=== PATIENT | male | born 1960 | race Caucasian/White ===

== ENCOUNTER 2023-03-29 10:07 | Emergency (ER) | payer MEDICARE, SELFPAY ==
[2023-03-29 10:12] VITALS: BP 151/83; PULSE 84; RESP 20; TEMP 36.8; O2SAT 94; BMI 34.5
--- NOTE | 2023-03-29 11:29 | ED.GENADULT ---
HPI - General Adult General Chief complaint: Ear Problems Stated complaint: blood drainage l ear facial swelling Time Seen by Provider: 03/29/23 10:34 Source: patient, RN notes reviewed and old records reviewed Mode of arrival: ambulatory Limitations: no limitations History of Present Illness HPI narrative: Patient reports that Sunday he had pain in his left ear and reported to have small amount of blood. Patient denies hearing loss. No cold symptoms. Patient denies using Q-tips or anything else to clean his ears. Patient also reports left sided mouth pain mild swelling. Patient states that he has not seen a dentist for a while. Patient is not diabetic. Patient denies sore throat, dysphagia or dyspepsia. Denies any respiratory symptoms. Onset (ago): day(s) Related Data Previous Rx's Medication Instructions Recorded amoxicillin 500 mg capsule 500 mg PO BID 7 days #14 caps 03/29/23 Allergies Allergy/AdvReac Type Severity Reaction Status Date / Time duloxetine [From Cymbalta] Allergy Dizziness Verified 03/29/23 10:12 NSAIDS (Non-Steroidal AdvReac Gastrointestinal Verified 03/29/23 10:12 Anti-Inflamma Upset [facility] Social History Social History Advance Directives: No Physical Exam ED Vital Signs: Vital Signs - 24 hr 03/29/23 10:12 Temperature 98.2 F Pulse Rate 84 Respiratory Rate 20 Blood Pressure 151/83 H Pulse Oximetry 94 Oxygen Delivery Method Room Air BMI result Body Mass Index 34.5 Const General: cooperative and no acute distress Nutritional Appearance: average body habitus HENMO Head: Yes normal to inspection, Yes No palpable skull fracture present, Yes normocephalic and Yes atraumatic Ears: TM normal on the right, TM normal on the left and other (Left outer ear dried blood without redness, inflammation.) Face and sinus: Yes normal facial exam Teeth and gingiva: abnormal tooth and associated gingiva and poor dentition Resp Effort & Inspection: normal respiratory effort and able to speak in complete sentences Cardio Rate: regular rate Skin General skin exam: no rashes or lesions noted, elasticity normal and turgor normal Medications Administered Discontinued Medications Generic Name Dose Route Start Last Admin Trade Name Freq PRN Reason Stop Dose Admin Amoxicillin 500 mg 03/29/23 11:29 03/29/23 11:51 Amoxicillin 500 Mg Capsule PO 03/29/23 11:30 500 mg ONCE ONE Administration Medical Decision Making Medical Decision Making [facility] Narrative: Patient reports that Sunday he had pain in his left ear and reported to have small amount of blood. Patient denies hearing loss. No cold symptoms. Patient denies using Q-tips or anything else to clean his ears. Patient also reports left sided mouth pain mild swelling. Patient states that he has not seen a dentist for a while. Patient is not diabetic. Patient denies sore throat, dysphagia or dyspepsia. Denies any respiratory symptoms. Normal TM, small amount of blood noted in the ear canal that it is dry. No inflammation. Patient also has poor dentition mild swelling without abscess. Patient will be sent home with amoxicillin and follow-up with his dentist. Differential Diagnosis Differential Diagnoses: The differential diagnosis associated with the presentation includes Gingivitis, abscess, ear infection Discharge Plan Discharge Clinical Impression: Otitis externa, Gingivitis Patient Disposition: Home, Self-Care Instructions: Gingivitis (ED), Earache (ED) Additional Instructions: you were seen here today for ear pain and mouth pain. You will be giving script for antibiotic to prevent any further infection. Your left ear has no infection. Please follow-up with your primary care provider as well as the dentist. make sure that to drink plenty fluids. you may return to emergency department your symptoms will get worse or if you experience any additional concerning symptoms. Please finish all of you antibiotics even if your symptoms will improve Prescriptions: New amoxicillin 500 mg capsule 500 mg PO BID 7 Days Qty: 14 0RF Interventions: ED Discharge Assessment Last Done: 03/29/23 12:02 Discharge Date/Time: 03/29/23 12:03
[2023-03-29] MEDS: Amoxicillin 500 MG CAPSULE PO (11:51)
== END 2023-03-29 12:03 | disposition home or self-care (01) ==
PROVIDERS: Emergency Provider Student in an Organized Health Care Education/Training Program; PCP Internal Medicine
DX: H60.92 Unspecified otitis externa, left ear (principal); H92.02 Otalgia, left ear; K05.10 Chronic gingivitis, plaque induced
CPT/HCPCS: 99283

== ENCOUNTER 2025-03-08 15:00 | Emergency (ER) | payer MEDICARE, MEDICAID, SELFPAY ==
[2025-03-08] VITALS (13 sets, daily range): BP systolic 99–125; BP diastolic 70–91; PULSE 67–119; RESP 13–40; TEMP 37–39.4; O2SAT 95–100; BMI 41.0
--- NOTE | ~2025-03-08 | XR_ITS ---
CLINICAL HISTORY: sob 1 view chest x-ray Comparison: None Findings: Low lung volumes. No consolidation, large effusion or pneumothorax. Cardiomegaly. Spinal stimulator electrodes project over the lower thoracic spine. IMPRESSION: Low lung volumes.No acute cardiopulmonary findings. This document has been electronically signed by: Issac Candelario MD on 03/08/2025 17:48:18
--- NOTE | 2025-03-08 15:23 | ECG_ITS ---
Test Reason : WEAK Blood Pressure : */* mmHG Vent. Rate : 110 BPM Atrial Rate : * BPM P-R Int : * ms QRS Dur : 92 ms QT Int : 336 ms P-R-T Axes : * 7 14 degrees QTcB Int : 454 ms Atrial fibrillation with rapid ventricular response Possible Inferior infarct , age undetermined Abnormal ECG No previous ECGs available Referred By: Dora Forman Electronically Signed By: Uvaldo Jain
--- NOTE | 2025-03-08 15:28 | ED.GENADULT ---
HPI - General Adult General Chief complaint: General Medical Stated complaint: BODY ACHES COUGHING Time Seen by Provider: 03/08/25 15:17 Source: patient and EMS Mode of arrival: EMS Limitations: no limitations History of Present Illness ED Provider: Dora Forman NP HPI narrative: Patient is a 64-year-old male who presents emergency department via EMS coming from [facility]. He reports that he has been there for approximately 1 week. He states that he began experiencing flu-like symptoms yesterday evening endorsing nausea, intermittent double vision, dizziness, productive cough with green phlegm. Admits to a history of COPD with chronic supplemental oxygen usage. He does admit that he recently got a roommate at the facility who has been ill with upper respiratory symptoms and a productive cough. He admits that when he was recently at [facility] prior to going to [facility] he had withdrawn from alcohol there, does not believe he has had an alcoholic drink in approximately 1 week. Reports that his head feels ?scrambled? is answering questions appropriately Related Data Previous Rx's ?Medication ?Instructions ?Recorded amoxicillin 500 mg capsule 500 mg PO BID 7 days #14 caps 03/29/23 Allergies Allergy/AdvReac Type Severity Reaction Status Date / Time duloxetine [From Cymbalta] Allergy Dizziness Verified 03/08/25 15:19 NSAIDS (Non-Steroidal AdvReac Gastrointestinal Verified 03/08/25 15:19 Anti-Inflamma Upset Review of Systems Review of Systems: Yes all other systems are reviewed and are negative PMFSH Past Medical History Attestation statement: The following information was validated with the patient. Source: old records reviewed Social History Social History Advance Directives: No Advance Directives Information Provided: No Physical Exam ED Vital Signs: Vital Signs - 24 hr 03/08/25 15:15 03/08/25 15:23 03/08/25 16:17 Temperature 98.6 F 103.0 F H 101.7 F H Pulse Rate 97 109 H 105 H Respiratory Rate 16 20 Blood Pressure 125/77 115/87 Pulse Oximetry 97 98 Oxygen Delivery Method Nasal Cannula Nasal Cannula Oxygen Flow Rate 2 03/08/25 16:31 03/08/25 16:55 03/08/25 17:11 Temperature 101.1 F H 101.1 F H 100.8 F H Pulse Rate 67 89 104 H Respiratory Rate 23 H 29 H 30 H Blood Pressure 112/78 106/83 112/74 Pulse Oximetry 99 99 99 Oxygen Delivery Method Nasal Cannula Nasal Cannula Nasal Cannula Oxygen Flow Rate 2 2 2 03/08/25 17:31 03/08/25 17:46 03/08/25 18:04 Temperature 100.4 F 100.2 F Pulse Rate 104 H 95 96 Respiratory Rate 25 H 40 H 13 Blood Pressure 118/75 113/78 Pulse Oximetry 99 98 Oxygen Delivery Method Nasal Cannula Nasal Cannula Oxygen Flow Rate 2 03/08/25 19:00 Temperature 100.0 F Pulse Rate Respiratory Rate 20 Blood Pressure Pulse Oximetry Oxygen Delivery Method Oxygen Flow Rate BMI result Body Mass Index 41.0 Appearance: Alert.?Oriented to person, place and time. No acute distress.?Normal affect. Eyes: Pupils equal, round and reactive to light.? ENT: Pharynx normal.?? Neck: Normal inspection.? Neck supple.?? CVS: Heart sounds normal. Tachycardia Pulses normal.?? Respiratory: No respiratory distress.? Lung sounds with expiratory wheezing, coarse of the bilateral bases Abdomen: Soft and non-tender. Normoactive bowel sounds. ? Skin: Skin appears a bit pale Skin is hot to touch of the core, slightly clammy at the extremities. He is febrile?? Extremities: No lower extremity edema.? Neuro: Moves all extremities spontaneously. Sensation intact bilaterally. No focal neuro deficits. Course Reevaluation(s) Reevaluation #1: Patient is noted to be COVID-19 positive today, chest x-ray without consolidation infiltrate to suggest pneumonia, he has no increased oxygen requirement, he is tachycardic which is to be expected, patient received Solu-Medrol and will trial albuterol given his history of COPD feel that this would be of benefit for him. EKG reveals atrial fibrillation with RVR, ventricular rate of 110, QTC 454, no ST-elevation. pulse has been 100-110 in the emergency department. After his pulse closely, if any higher he may require intervention though none warranted at this time. CBC is without leukocytosis anemia or thrombocytopenia. No electrolyte derangement. No JEREL. No lactic acidosis. LFTs overall unremarkable. High sensitive troponin within normal range. BNP at 118, clinically does not appear volume overloaded. He was pending urinalysis at this time, visit vitals remain otherwise stable anticipate that he will be transferred [facility] to [facility] facility Patient signed out to [facility] pending urinalysis, unless otherwise acute changes anticipate discharge Medications Administered Discontinued Medications Generic Name Dose Route Start Last Admin Trade Name Gretchen PRN Reason Stop Dose Admin Acetaminophen 975 mg 03/08/25 15:28 03/08/25 15:59 Acetaminophen 325 Mg Tablet PO 03/08/25 15:29 975 mg ONCE ONE Administration Albuterol Sulfate 5 mg 03/08/25 17:58 03/08/25 18:04 Albuterol Sulfate (0.083%) 2.5 Mg/3 Ml Vial.Neb INHALE 03/08/25 17:59 5 mg ONCE ONE Administration Ceftriaxone Sodium 1 gm 03/08/25 15:22 03/08/25 16:10 Ceftriaxone Sodium 1 Gm Vial IVPUSH 03/08/25 15:23 1 gm ONCE ONE Administration Sodium Chloride 500 mls @ 999 mls/hr 03/08/25 15:45 03/08/25 17:11 Ns IV 03/08/25 16:15 Infused .Q31M RADHA Infusion Methylprednisolone Sodium Succinate 60 mg 03/08/25 17:48 03/08/25 18:30 Methylprednisolone Sod Succ 125 Mg/2 Ml Vial IVPUSH 03/08/25 17:49 60 mg ONCE ONE Administration Medical Decision Making Medical Decision Making MDM Narrative: Patient is a 64-year-old male with past medical history of COPD with chronic hypoxic respiratory failure on 2 L of supplemental oxygen at baseline, heart failure preserved EF most recent echocardiogram September of 2024 revealing normal EF, atrial fibrillation not on anticoagulation secondary to prior GI bleed, IVÁN not on CPAP, left cavernous ICA aneurysm with recent advisement for outpatient neurointerventional follow-up, alcohol use disorder presenting from [facility] for evaluation of flu-like symptoms as per HPI. On review of medical records from [facility] he was admitted -02/27/25 initially brought in for hypotension, alcohol withdrawal, AFib with RVR, and JEREL resolved after IV fluids. Today he arrives tachycardic, febrile, clammy of the extremities and hot to the core, sepsis alert was called. Given his history of heart failure, start with only 500 mL of normal saline at this time pending serum labs as well as lactic acid, he is not currently hypotensive. He feels a bit foggy but he is able to answer all questions appropriately and he is otherwise mentating accordingly. Differential Diagnosis Differential Diagnoses: The differential diagnosis associated with the presentation includes (Viral upper respiratory infection, pneumonia, COPD exacerbation, heart failure exacerbation) Admission/Observation Consideration of admission/observation: Escalation of care including admission/observation considered Lab Data MDM Lab Attestation statement: I reviewed the patient's lab results. 03/08/25 15:52 03/08/25 15:52 Labs: Lab Results 03/08/25 03/08/25 03/08/25 Range/Units 15:52 16:09 16:38 WBC 7.2 (4.8-10.8) X10*3/uL RBC 5.10 (4.60-5.80) X10*6/uL Hgb 14.6 (14.0-18.0) g/dl Hct 46.7 (42.0-52.0) % MCV 91.6 (80.0-98.0) fL MCH 28.6 (27.0-33.0) pg MCHC 31.3 (31.0-36.0) g/dl RDW 15.5 (11.0-16.0) % Plt Count 236 (160-400) X10*3/uL MPV 10.2 (9.4-12.4) fL Immature Gran % (Auto) 0.7 H (0.0-0.4) % Neut % (Auto) 72.4 (45-73) % Lymph % (Auto) 11.1 L (20-40) % Hartley % (Auto) 14.2 H (2-11) % Eos % (Auto) 0.8 (0-4) % Baso % (Auto) 0.8 (0-2) % Lymph # (Auto) 0.8 L (1.2-4.9) X10*3/uL Hartley # (Auto) 1.0 (0.1-1.2) X10*3/uL Eos # (Auto) 0.1 (0.0-0.4) X10*3/uL Baso # (Auto) 0.1 (0.0-0.2) X10*3/uL Abs Immat Gran (auto) 0.05 H (0.00-0.03) X10*3/uL Absolute Neuts (auto) 5.2 (2.0-8.3) x10*3/uL Absolute Nucleated RBC 0.000 (0.0-0.012) X10*3/uL Nucleated RBC % (auto) 0.0 (0.0-0.2) /100WBC PT 13.6 H (10.9-12.4) SEC INR 1.2 H (0.9-1.1) Sodium 141 (135-145) mmol/L Potassium 4.0 (3.3-5.1) mmol/L Chloride 98 (96-108) mmol/L Carbon Dioxide 27 (22-29) mmol/L Anion Gap 20 (12-20) BUN 14 (9-16) mg/dL Creatinine 0.88 (0.5-1.4) mg/dL Estim Creat Clear Calc 95.3 Estimated GFR > 60 Random Glucose 108 (60-115) mg/dL Lactic Acid 1.0 (0.5-2.0) mmol/L Calcium 9.0 (8.4-10.2) mg/dL Magnesium 2.0 (1.6-2.6) mg/dL Total Bilirubin 0.2 (0.0-1.0) mg/dL AST 40 H (5-37) U/L ALT 22 (0-40) U/L Alkaline Phosphatase 84 (39-117) U/L Troponin I High Sens 10.3 (<3.5-35.0) ng/L B-Natriuretic Peptide 118 H (<100) pg/mL Total Protein 7.1 (6.5-8.0) g/dL Albumin 3.7 (3.5-5.0) g/dL Urine Color Urine Appearance Urine pH (5.0-9.0) Ur Specific [place] (1.005-1.025) Urine Protein (Neg-Trace) mg/dL Urine Glucose (UA) (Negative) mg/dL Urine Ketones (Negative) mg/dL Urine Blood (Negative) Urine Nitrite (Negative) Ur Leukocyte Esterase (Negative) Urine RBC (0-2) /HPF Urine WBC (0-5) /HPF Ur Squamous Epith Cells (0-2) /HPF Urine Bacteria (None Seen) Hyaline Casts (0-2) /LPF Influenza Type A (PCR) NEGATIVE (Negative) Influenza Type B (PCR) NEGATIVE (Negative) RSV RNA Qual (PCR) NEGATIVE (Negative) SARS-CoV-2 RNA (RT-PCR) POSITIVE A (Negative) 03/08/25 Range/Units 18:57 WBC (4.8-10.8) X10*3/uL RBC (4.60-5.80) X10*6/uL Hgb (14.0-18.0) g/dl Hct (42.0-52.0) % MCV (80.0-98.0) fL MCH (27.0-33.0) pg MCHC (31.0-36.0) g/dl RDW (11.0-16.0) % Plt Count (160-400) X10*3/uL MPV (9.4-12.4) fL Immature Gran % (Auto) (0.0-0.4) % Neut % (Auto) (45-73) % Lymph % (Auto) (20-40) % Hartley % (Auto) (2-11) % Eos % (Auto) (0-4) % Baso % (Auto) (0-2) % Lymph # (Auto) (1.2-4.9) X10*3/uL Hartley # (Auto) (0.1-1.2) X10*3/uL Eos # (Auto) (0.0-0.4) X10*3/uL Baso # (Auto) (0.0-0.2) X10*3/uL Abs Immat Gran (auto) (0.00-0.03) X10*3/uL Absolute Neuts (auto) (2.0-8.3) x10*3/uL Absolute Nucleated RBC (0.0-0.012) X10*3/uL Nucleated RBC % (auto) (0.0-0.2) /100WBC PT (10.9-12.4) SEC INR (0.9-1.1) Sodium (135-145) mmol/L Potassium (3.3-5.1) mmol/L Chloride (96-108) mmol/L Carbon Dioxide (22-29) mmol/L Anion Gap (12-20) BUN (9-16) mg/dL Creatinine (0.5-1.4) mg/dL Estim Creat Clear Calc Estimated GFR Random Glucose (60-115) mg/dL Lactic Acid (0.5-2.0) mmol/L Calcium (8.4-10.2) mg/dL Magnesium (1.6-2.6) mg/dL Total Bilirubin (0.0-1.0) mg/dL AST (5-37) U/L ALT (0-40) U/L Alkaline Phosphatase (39-117) U/L Troponin I High Sens (<3.5-35.0) ng/L B-Natriuretic Peptide (<100) pg/mL Total Protein (6.5-8.0) g/dL Albumin (3.5-5.0) g/dL Urine Color Dark Yellow Urine Appearance Clear Urine pH 5.5 (5.0-9.0) Ur Specific [place] 1.020 (1.005-1.025) Urine Protein Trace (Neg-Trace) mg/dL Urine Glucose (UA) Negative (Negative) mg/dL Urine Ketones Negative (Negative) mg/dL Urine Blood Negative (Negative) Urine Nitrite Negative (Negative) Ur Leukocyte Esterase Small (1+) H (Negative) Urine RBC 0-2 (0-2) /HPF Urine WBC 6-10 H (0-5) /HPF Ur Squamous Epith Cells 0-2 (0-2) /HPF Urine Bacteria None Seen (None Seen) Hyaline Casts 0-2 (0-2) /LPF Influenza Type A (PCR) (Negative) Influenza Type B (PCR) (Negative) RSV RNA Qual (PCR) (Negative) SARS-CoV-2 RNA (RT-PCR) (Negative) Independent Interpretation I performed an independent interpretation of an: Plain X-Ray (No Consolidation or infiltrate) Radiology Impression Discussion of test interpretation with radiology: I have reviewed the radiologist's reading. Radiologist Impression: 1 view chest x-ray Comparison: None Findings: Low lung volumes. No consolidation, large effusion or pneumothorax. Cardiomegaly. Spinal stimulator electrodes project over the lower thoracic spine. IMPRESSION: Low lung volumes.No acute cardiopulmonary findings. Independent Historian Clinical information obtained from an independent historian. History obtained from or confirmed by: EMS External Record Review External record reviewed: Outpatient record (See narrative above) Discharge Plan Discharge Clinical Impression: COVID-19 Patient Disposition: Home, Self-Care Instructions: COVID-19 (Coronavirus Disease 2019) (ED) Additional Instructions: You have COVID-19. Your chest x-ray was clear. You may use Tylenol as needed for fever. Your last dose in the ER was around 3:30 p.m. today on 03/08/2025 Return for new or worsening symptoms Prescriptions: No Action amoxicillin 500 mg capsule 500 mg PO BID 7 Days Qty: 14 0RF Print Language: Maltese
[2025-03-08 15:56] LABS: MANUAL DIFF FLAG NO
[2025-03-08] MEDS: Acetaminophen 325 MG TABLET 975 MG PO (15:59)
[2025-03-08] MEDS: 0.9 % Sodium Chloride 500 ML 999 ML IV (16:04)
--- NOTE | 2025-03-08 16:07 | PC.NURSE ---
delay in blood culture and sepsis iv abx due to delay in tech drawing blood
[2025-03-08 16:09] LABS: Basophils Absolute Auto 0.1 X10*3/uL (0.0-0.2); Basophils Percent Auto 0.8 % (0-2); Eosinophils Absolute Auto 0.1 X10*3/uL (0.0-0.4); Eosinophils Percent Auto 0.8 % (0-4); Hematocrit 46.7 % (42.0-52.0); Hemoglobin 14.6 g/dl (14.0-18.0); Imm Gran Abs Auto 0.05 X10*3/uL (0.00-0.03); Imm Gran Pct Auto 0.7 % (0.0-0.4); Lymphocytes Absolute Auto 0.8 X10*3/uL (1.2-4.9); Lymphocytes Percent Auto 11.1 % (20-40); Mean Corpuscular HGB Conc 31.3 g/dl (31.0-36.0); Mean Corpuscular Hemoglobin 28.6 pg (27.0-33.0); Mean Corpuscular Volume 91.6 fL (80.0-98.0); Mean Platelet Volume 10.2 fL (9.4-12.4); Monocytes Percent Auto 14.2 % (2-11); Neutrophils Absolute Auto 5.2 x10*3/uL (2.0-8.3); Neutrophils Percent Auto 72.4 % (45-73); Platelet Count 236 X10*3/uL (160-400); Red Cell Distribution Width 15.5 % (11.0-16.0); White Blood Count 7.2 X10*3/uL (4.8-10.8)
[2025-03-08] MEDS: cefTRIAXone sodium 1 GM VIAL IVPUSH (16:10)
[2025-03-08 16:25] LABS: INTERNATIONAL NORM RATIO 1.2 (0.9-1.1); Prothrombin Time 13.6 SEC (10.9-12.4)
[2025-03-08 16:29] LABS: Troponin-I High Sensitivity 10.3 ng/L (<3.5-35.0)
--- NOTE | 2025-03-08 16:30 | PC.NURSE ---
patient presented fro
--- NOTE | 2025-03-08 16:33 | PC.NURSE ---
patient comes from [facility], patient states he arrived there one week ago. patient states he started having flu symptoms since last night. patient rectal temp 103F, rectal probe placed for temperature monitoring. patient is diaphoretic and tachycardic, hx of copd on 2lNC at baseline. IV access obtain in patient left hand #22, labs drawn and sent, additional IV access obtained by US guided by Diony MCKNIGHT, second set of cultures obtained and sent. patient remains alert and oriented x4, states he feels off . patient states he withdrawled from alcohol last week while hospitalized. patient changed into hospital attire, no wounds or skin issues noted at this time.
[2025-03-08 16:37] LABS: B Type Natriuretic Peptide 118 pg/mL (<100)
[2025-03-08 16:44] LABS: Alanine Aminotransferase 22 U/L (0-40); Albumin Level 3.7 g/dL (3.5-5.0); Anion Gap 20 (12-20); Aspartate Amino Transferase 40 U/L (5-37); Bilirubin Total 0.2 mg/dL (0.0-1.0); Blood Urea Nitrogen 14 mg/dL (9-16); Carbon Dioxide 27 mmol/L (22-29); Chloride 98 mmol/L (96-108); Creatinine Clr Calc Pharmacy 95.3; Estimated Glomerular Filt Rate > 60; Glucose Random 108 mg/dL (60-115); Sodium 141 mmol/L (135-145); Total Protein 7.1 g/dL (6.5-8.0)
[2025-03-08 16:58] LABS: Alkaline Phosphatase 84 U/L (39-117)
[2025-03-08 17:26] LABS: Influenza A PCR NEGATIVE (Negative); Influenza B PCR NEGATIVE (Negative); Resp Syncy Virus RNA Qual PCR NEGATIVE (Negative); SARS COV2 PCR INHOUSE POSITIVE (Negative)
[2025-03-08] MEDS: Albuterol Sulfate (0.083%) 2.5 MG/3 ML VIAL.NEB 5 MG INHALE (18:04)
--- NOTE | 2025-03-08 18:26 | PC.NURSE ---
attempted to call [facility] for nurse to nurse x3, was asked to leave a name and number with secretary specialist, stating they will call back for report
[2025-03-08] MEDS: methylPREDNISolone Sod Succ 125 MG/2 ML VIAL 60 MG IVPUSH (18:30)
[2025-03-08 19:04] LABS: Appearance Urine Clear; Color Urine Dark Yellow; Glucose Urine UA Negative (Negative); Leukocyte Esterase Urine Small (1+) (Negative); Nitrite Urine Negative (Negative); PH 5.5 (5.0-9.0); UMIC TRIGGER UACC YES; Urine Blood Negative (Negative); Urine Ketones Negative (Negative); Urine Protein Trace mg/dL (Neg-Trace)
[2025-03-08 19:09] LABS: Bacteria Urine None Seen (None Seen); Hyaline Casts Urine 0-2 /LPF (0-2); RBC Urine 0-2 /HPF (0-2); Squamous Epithelial Cell Urine 0-2 /HPF (0-2); UACC Culture Trigger YES
== END 2025-03-08 22:35 | disposition home or self-care (01) ==
PROVIDERS: Nurse Practitioner Family; Emergency Provider Emergency Medicine
DX: U07.1 COVID-19 (principal); R06.02 Shortness of breath; R11.0 Nausea; H53.2 Diplopia; R42 Dizziness and giddiness; R05.9 Cough, unspecified
CPT/HCPCS: 0241U; 71045; 80053; 81001; 83605; 83735; 83880; 84484; 85025; 85610; 87040; 87086; 93005; 94640; 96361; 96374; 96375; 99284; 99285; J0696; J2919

== ENCOUNTER → 2025-03-08 15:22 | Outpatient (BNV) | payer MEDICARE, MEDICAID, SELFPAY | PROVIDERS: Emergency Provider Emergency Medicine; Visit Provider Radiology Diagnostic Radiology | DX: J98.4 Other disorders of lung (principal) | CPT/HCPCS: 71045 ==

== ENCOUNTER → 2025-03-08 15:23 | Outpatient (BNV) | payer MEDICARE, MEDICAID, SELFPAY | PROVIDERS: Emergency Provider Emergency Medicine; Visit Provider Internal Medicine Cardiovascular Disease | DX: I48.91 Unspecified atrial fibrillation (principal) | CPT/HCPCS: 93010 ==